=== PATIENT | female | born 2000 | race Caucasian/White ===

== ENCOUNTER 2025-02-22 16:46 | Emergency (ER) | payer BC, SELFPAY ==
[2025-02-22 16:48] VITALS: BMI 29.8
[2025-02-22 17:18] VITALS: BP 132/91; PULSE 105; RESP 18; TEMP 37.7; O2SAT 98
--- NOTE | 2025-02-22 17:27 | XR_ITS ---
Examination: Abdomen sonogram, Limited Date and time of exam: February 22, 2025 1755 hours INDICATIONS: Right upper abdominal pain beginning 3 days ago Technique: Real-time murphy scale transabdominal sonographic images of the upper abdomen obtained. Findings: Normal gallbladder. Normal common bile duct 0.3 cm Pancreatic head 2.4 cm Liver 15.2 cm smooth contour and no focal liver lesions Normal hepatopedal portal venous flow Patent IVC IMPRESSION: Negative study
--- NOTE | 2025-02-22 17:27 | EDRME_ITS ---
Rapid Medical Screening Exam [facility] Arrival date/time: 02/22/25 16:46 CC: Right upper quadrant abdominal pain HPI ongoing for the past 3 days with progressive increase in severity denies nausea vomiting diarrhea chest pain or shortness of breath no prior history of similar events. Daily medicine is fluoxetine no allergies. Patient is late on her menstrual cycle. Chief Complaint: Abdominal Pain Time Seen by Provider: 02/22/25 17:24 Vital signs: Vital Signs Temperature 99.8 F 02/22/25 17:18 Pulse Rate 105 H 02/22/25 17:18 Respiratory Rate 18 02/22/25 17:18 Blood Pressure 132/91 H 02/22/25 17:18 Pulse Oximetry (%) 98 02/22/25 17:18 Oxygen Delivery Method Room Air 02/22/25 17:18
[2025-02-22 18:07] LABS: Collection Type, Urine Clean Catch
[2025-02-22 18:16] LABS: Bilirubin,Urine Negative (Negative); Blood,Urine 1+ (Negative); Clarity,Urine Turbid (Clear/Hazy); Color,Urine Yellow (Lt Yel-Yel); Glucose, Urine Negative (Negative); Ketones,Urine Negative (Negative); Leukocyte Esterase,Urine Positive (Negative); Nitrite,Urine Negative (Negative); PH,Urine 6.0 (5.0-7.0); Protein,Urine Trace (Neg - Trace); RBC,Urine 14 /hpf (0-3); Specific Gravity,Urine 1.034 (1.001-1.035); Squamous Epithelial Cell,Urine 11 /hpf (0-5); Urobilinogen,Urine Negative mg/dL (0.0-1.0); WBC,Urine 54 /hpf (0-5)
[2025-02-22 18:17] LABS: HCG Qualitative,Urine Negative
[2025-02-22 18:30] LABS: Amphetamine/Methamp Scrn,U Negative (Negative); Barbiturate Screen,Urine Negative (Negative); Benzodiazepines Screen,Urine Negative (Negative); Benzoylecgonine Screen, Ur Negative (Negative); Fentanyl Screen,Urine Negative (Negative); Opiate Screen,Urine Negative (Negative); THC Screen,Urine Negative (Negative)
[2025-02-22 18:47] LABS: Basophils # (Auto) 0.1 Thou/mm3 (0.0-0.2); Basophils % (Auto) 1 % (0-2.5); Eosinophils # (Auto) 0.2 Thou/mm3 (0.0-0.5); Eosinophils % (Auto) 2 % (0-10); Hematocrit 43.4 % (36.0-46.0); Hemoglobin 14.3 g/dL (12.0-16.0); Immature Granulocytes Auto 0.05 Thou/mm3 (0.00-0.00); Lymphocytes # (Auto) 2.3 Thou/mm3 (1.0-4.8); Lymphocytes % (Auto) 20 % (10-50); Mean Corpuscular HGB Conc 32.9 g/dl (31.0-37.0); Mean Corpuscular Hemoglobin 28.8 pg (25.0-35.0); Mean Corpuscular Volume 88 fL (80-100); Monocytes # (Auto) 0.9 Thou/mm3 (0.0-0.8); Monocytes % (Auto) 8 % (0-12); Neutrophils # (Auto) 8.1 Thou/mm3 (1.8-7.7); Neutrophils % (Auto) 70 % (37-80); Nucleated Red Blood Cell # 0.00 Thou/mm3 (0.00-0.00); Nucleated Red Blood Cell % 0 /100 WBC (0); Platelet Count 300 Thou/mm3 (140-440); RDW Standard Deviation 41.4 fL (36.4-46.3); Red Blood Count 4.96 Miln/mm3 (4.00-5.20); White Blood Count 11.5 Thou/mm3 (3.6-11.0)
[2025-02-22 19:00] LABS: Alanine Aminotransferase 10 U/L (10-49); Albumin, Serum 4.7 gm/dL (3.5-5.0); Albumin/Globulin Ratio 1.7 (1.2-2.2); Alkaline Phosphatase 86 U/L (46-116); Anion Gap 10 (7-16); Aspartate Amino Transferase 21 U/L (0-34); BUN/Creatinine Ratio 10 Ratio (12-20); Bilirubin,Total 0.3 mg/dL (0.3-1.2); Blood Urea Nitrogen 8 mg/dL (9-23); Calcium 9.4 mg/dL (8.3-10.6); Calcium (Corrected) 9.4 mg/dL (8.5-10.1); Carbon Dioxide 25.3 mMol/L (20.0-31.0); Chloride 103 mMol/L (98-107); Creatinine (Component) 0.8 mg/dL (0.6-1.3); Estimated Creatinine Clearance 118.4 mL/min (>60); Globulin 2.8 gm/dL (2.3-3.5); Glucose 93 mg/dL (74-106); Lipase 35 U/L (12-53); Magnesium 2.1 mg/dL (1.6-2.6); Osmolality,Calculated 273 (275-295); Potassium 3.9 mMol/L (3.4-5.1); Sodium 138 mMol/L (136-145); Total Protein 7.5 gm/dL (5.7-8.2); eGFR > 60 See Note
--- NOTE | 2025-02-22 19:25 | PD.EDABDPN ---
ED Abdominal Pain RME/HPI General Chief Complaint: Abdominal Pain Stated complaint: SHARP PAIN UNDER RIGHT CHEST, MIGHT BE GALLBLADDER Time seen by provider: 02/22/25 17:24 Arrival date/time: 02/22/25 16:46 RME / HPI RME / HPI narrative: 24-year-old female patient came in for evaluation regarding right upper quadrant abdominal pain HPI ongoing for the past 3 days with progressive increase in severity denies nausea vomiting diarrhea chest pain or shortness of breath no prior history of similar events. Daily medicine is fluoxetine no allergies. Patient is late on her menstrual cycle. Denies any other complaints. No medications taken prior to arrival. No fever noted also. Related Data Home Medications ?Medication ?Instructions ?Recorded ?Confirmed fluoxetine 20 mg capsule 20 mg PO DAILY 11/08/22 11/08/22 Allergies Allergy/AdvReac Type Severity Reaction Status Date / Time No Known Allergies Allergy Verified 02/22/25 16:48 Review of Systems Review of Systems Narrative Review of Systems: Review of system reviewed and within normal limits except mentioned in HPI ED Exam Narrative Physical exam: VITAL SIGNS: Reviewed. GENERAL APPEARANCE: Alert and interactive, follows commands, no acute distress, HEAD AND FACE: Non-traumatic. ENT: PERRL, pink conjunctivitis, eyelid no trauma, Mucous membrane moist. NECK: Supple, nontender, no nuchal rigidity. CHEST: No tenderness, no crepitus, no paradoxical movement, no retractions. LUNGS: Clear, well ventilated, symmetric, no rales, no wheezing, no ronchi, no stridor, good breath sounds bilaterally. HEART: Regular rate, regular rhythm, no murmur, no gallops. ABDOMEN: Soft, positive bowel sounds, nondistended, no guarding, right upper quadrant tenderness, no rebound, no masses, RECTAL: Deferred. GENITAL: Deferred. NEUROLOGICAL: Gross motor function intact sensory function intact, Appropriate for age. MUSCULOSKELETAL: low back nontender, full range of motion. EXTREMITIES: Nontender, full range of motion. SKIN: Color pink, dry, no rash, no lacerations, no abrasions, no contusions. LYMPHATICS: Deferred. Course Quality Measures none Orders Category Date Time Status US gall bladder Stat Exams 02/22/25 17:27 Completed CBC Stat Lab 02/22/25 18:25 Completed Comprehensive Metabolic Panel Stat Lab 02/22/25 18:25 Completed Drug Screen,Urine Stat Lab 02/22/25 17:49 Completed HCG Qualitative,Urine Stat Lab 02/22/25 17:49 Completed Lipase Stat Lab 02/22/25 18:25 Completed Magnesium Stat Lab 02/22/25 18:25 Completed Urinalysis Stat Lab 02/22/25 17:49 Completed Vital Signs Vital signs: Vital Signs Temperature 99.8 F 02/22/25 17:18 Pulse Rate 105 H 02/22/25 17:18 Respiratory Rate 18 02/22/25 17:18 Blood Pressure 132/91 H 02/22/25 17:18 Pulse Oximetry (%) 98 02/22/25 17:18 Oxygen Delivery Method Room Air 02/22/25 17:18 Abdominal Pain MDM MDM Narrative MDM Narrative:: 24-year-old female patient came in for evaluation regarding right upper quadrant abdominal pain HPI ongoing for the past 3 days with progressive increase in severity denies nausea vomiting diarrhea chest pain or shortness of breath no prior history of similar events. Daily medicine is fluoxetine no allergies. Patient is late on her menstrual cycle. Denies any other complaints. No medications taken prior to arrival. No fever noted also. Ultrasound of the gallbladder came back unremarkable. Patient's laboratory workup also came back normal. LFTs are normal total bili is normal urinalysis contaminated. Patient was advised to return to emergency room for worsening pain, advised her to take [id number] Tylenol Motrin as needed for pain. Patient data External records reviewed:: None Clinical information provided by:: patient Social determinants that could affect healthcare access:: none Patient has the following chronic illnesses:: Depression How is presenting disease/condition affected by chronic disease/condition?: uneffected by Evaluation data The following diagnostics were reviewed and interpreted by me:: lab results and radiology exam(s) Lab and/or radiology exams considered but not ordered:: None Interpretation Summary: None Medications / Prescriptions Medications or Prescriptions considered but not ordered:: None Medication administrations:: None Consultations Consultation(s) initiated? (list below): No Diagnosis Differential diagnosis abdominal pain: abdominal pain, constipation and pancreatitis Most likely diagnosis given after review of the tests above:: Right upper quadrant tenderness Admission Indicated Admission indicated?: not indicated Explain why admission is indicated or not indicated:: Stable Admission Request Was there a request for admission?: No Disposition Plan Disposition Plan: Discharge Discharge Attestation Discharge Attestation: The patient and all family members were given an opportunity to ask questions and understood the discharge instructions. Discharge instructions specifically effects, indications for sooner follow up or return to the emergency department, and the expected course of current diagnosis. Patient condition: Stable Discharge Plan Plan Patient Disposition: HOME (Self Care) Discharge Disposition comment: Stable Prescriptions/Referrals Prescriptions/Med Rec: No Action fluoxetine 20 mg capsule 20 mg PO DAILY Patient Comments: TAKE 1 CAPSULE BY MOUTH EVERY DAY Problem List Clinical Impression: Right upper quadrant abdominal pain Patient/Caregiver Discharge Instructions Discharge Activity: activity as tolerated Education Materials: Abdominal Pain Additional Instructions: Thank you for the opportunity for serving you today. You are stable for discharged . You are advised to: Follow-up with your PCP in 1 to 2 days Return to ED for worsening of symptoms Increase oral fluids Can take Tylenol or Motrin for pain Print Language: Thai Stand Alone Forms: [facility] Award Info., Patient Portal Info Letter PA/SALONI Supervising Physician CECILE/SALONI Supervising Physician: MD Pernell
== END 2025-02-22 20:47 | disposition home or self-care (01) ==
LOC: SERX 19:35
PROVIDERS: Registered Nurse General Practice; Emergency Provider Emergency Medicine; PCP Family Medicine
DX: R10.11 Right upper quadrant pain (principal); F32.A Depression, unspecified; Z79.899 Other long term (current) drug therapy
CPT/HCPCS: 36415; 76705; 80053; 80307; 81001; 81025; 83690; 83735; 85025; 99283

== ENCOUNTER → 2025-04-04 | Outpatient (CLI) | payer BC, SELFPAY ==
--- NOTE | 2025-04-04 16:46 | XR_ITS ---
Examination: Thoracic spine 3 views Technique one AP lateral coned lateral upper dorsal spine 3 views Date and time: April 04, 2025, 1711 hrs. Indications: Upper back pain beginning 6 weeks ago. Findings: Adequate alignment thoracic inlet bodies on the lateral view No thoracic fracture No thoracic disc narrowing Pedicles are intact Impression: No thoracic fracture or arthritic change
== END | disposition home or self-care (01) ==
LOC: CDIM 16:43
PROVIDERS: PCP Family Medicine; Referring Provider Family Medicine; Visit Provider Family Medicine
DX: M54.9 Dorsalgia, unspecified (principal)
CPT/HCPCS: 72070